=== PATIENT | male | born 1965 | race Caucasian/White ===

== ENCOUNTER 2021-02-25 18:07 | Emergency (ER) | payer SELFPAY ==
[~2021-02-25] VITALS: Ht 167.6 cm; Wt 61.0 kg
[2021-02-25] MEDS ORDERED: SODIUM BICARBONATE [ADULT] 8.4% 50 MEQ/50 ML SYRINGE IVP ONE (18:10)
[2021-02-25] MEDS ORDERED: EPINEPHrine 1:10,000 [1 MG/10 ML] SYRINGE IVP ONE (18:10)
[2021-02-25] MEDS ORDERED: CALCIUM CHLORIDE 100 MG/ML 10 ML SYRINGE IVP ONE (18:10)
[2021-02-25 18:51] LABS: GLUCOSE,POINT OF CARE 95 MG/DL (70-110)
[2021-02-25 19:08] LABS: COVID AG,FIA SOURCE NASOPHARYNGEAL
[2021-02-25 19:49] LABS: ANION GAP 14 mmol/L (8-16); CALCIUM, TOTAL 6.4 mg/dL (8.8-10.5); CARBON DIOXIDE 19 mmol/L (22-29); CHLORIDE 103 mmol/L (98-107); CREATININE 6.04 mg/dL (0.60-1.30); GLOMERULAR FILTR. RATE CALC 10 mL/min (>60); GLUCOSE,RANDOM 124 mg/dL (70-110); POTASSIUM 5.7 mmol/L (3.5-5.1); SODIUM SERUM 136 mmol/L (136-145)
[2021-02-25 19:51] LABS: UREA NITROGEN, BLOOD 110 mg/dL (7-18)
[2021-02-25 19:56] LABS: GLUCOMETER DEV NAME(LOC) ERT.5; GLUCOSE,POINT OF CARE 78 MG/DL (70-110)
[2021-02-25 20:00] LABS: TROPONIN I < 0.02 ng/mL (0.00-0.05)
[2021-02-25] MEDS ORDERED: DEXTROSE 50%-WATER 25 GM/50 ML SYRINGE IVP ONE (20:10)
[2021-02-25 20:15] LABS: PROTHROMBIN TIME 19.9 SEC (9.4-11.6)
[2021-02-25] MEDS ORDERED: SODIUM ZIRCONIUM CYCLOSILICATE 5 GM POWDER PACKET PO ONE (20:15)
[2021-02-25] MEDS ORDERED: DEXTROSE 10%-WATER 1,000 ML IV ONE ×2 (20:15→21:45)
[2021-02-25 20:21] LABS: ALANINE AMINOTRANSFERASE 80 U/L (12-78); ALBUMIN 0.8 g/dL (3.4-5.0); ALKALINE PHOSPHATASE 488 U/L (46-116); ASPARTATE AMINOTRANSFERASE 219 U/L (15-37); BILIRUBIN,TOTAL 6.5 mg/dL (0.1-1.0); CREATINE KINASE, TOTAL ONLY 228 U/L (39-308); TOTAL PROTEIN, SERUM 4.4 g/dL (6.4-8.2)
[2021-02-25 20:24] LABS: LACTIC ACID 7.6 mmol/L (0.4-2.0)
[2021-02-25] MEDS ORDERED: AZITHROMYCIN 500 MG/NS 250 ML IV ONE (20:30)
[2021-02-25] MEDS ORDERED: CefTRIAXone 1 GM/DEXTROSE 50 ML IV ONE (20:30)
[2021-02-25 20:33] LABS: GLUCOMETER DEV NAME(LOC) ERT.5; GLUCOSE,POINT OF CARE 77 MG/DL (70-110)
[2021-02-25 20:44] LABS: AMMONIA 62 umol/L (11-32)
[2021-02-25 20:51] LABS: HEMATOCRIT 26.1 % (41-53); HEMOGLOBIN 8.9 g/dL (13.5-17.5); MEAN CORPUSCULAR HEMOGLOBIN 33.6 pg (26.0-34.0); MEAN CORPUSCULAR VOLUME 99 fL (80-100); PLATELET COUNT (AUTO) 25 K/uL (150-450); RED BLOOD CELL COUNT(AUTO) 2.64 MIL/uL (4.50-5.90); RED CELL DISTRIBUTION WIDTH 22.7 % (11.5-14.5)
[2021-02-25 21:30] LABS: BAND NEUTROPHILS % (MANUAL) 27 % (0-5); LYMPHOCYTES % (MANUAL) 19 % (22-44); MONOCYTES % (MANUAL) 6 % (2-9); SEGMENTED NEUTROPHILS % 48 % (40-70)
[2021-02-25] MEDS ORDERED: BISACODYL 10 MG RECTAL RECTAL SUPPOSITORY PR PRN (21:45)
[2021-02-25] MEDS ORDERED: ACETAMINOPHEN 325 MG TABLET PO PRN (21:45)
[2021-02-25] MEDS ORDERED: MORPHINE SULFATE 2 MG/ML SYRINGE IVP PRN (21:45)
[2021-02-25] MEDS ORDERED: ONDANSETRON HCL 4 MG/2 ML VIAL IVP PRN (21:45)
[2021-02-25] MEDS ORDERED: *CLINICAL-LEVOFLOXACIN IVPB DOSING CLINICAL ONE (21:45)
[2021-02-25] MEDS ORDERED: HYDROCODONE/ACETAMINOPHEN 5-325 MG TABLET PO PRN (21:45)
[2021-02-25] MEDS ORDERED: ZOLPIDEM TARTRATE 5 MG TABLET PO PRN (21:45)
[2021-02-25] MEDS ORDERED: MAGNESIUM HYDROXIDE SUSPENSION 30 ML UDCUP PO PRN (21:45)
[2021-02-25 21:52] LABS: PLATELET MORPHOLOGY COMMENT LARGE PLTS
[2021-02-25 21:58] LABS: INFLUENZA TYPE A NEGATIVE FOR TYPE A (NEGATIVE); INFLUENZA TYPE B NEGATIVE FOR TYPE B (NEGATIVE)
[2021-02-25 22:21] LABS: GLUCOMETER DEV NAME(LOC) ERT.5; GLUCOSE,POINT OF CARE 71 MG/DL (70-110)
[2021-02-25 22:45] VITALS: BP 62/23
[2021-02-26] MEDS ORDERED: HEPARIN SODIUM,PORCINE 5,000 UNITS/ML VIAL SQ SCH
[2021-02-26] MEDS ORDERED: LEVOFLOXACIN 750 MG/D5% WATER 150 ML IV ONE (02:00)
[2021-02-26] MEDS ORDERED: DOCUSATE SODIUM 100 MG CAPSULE PO SCH (09:00)
[2021-02-26] MEDS ORDERED: PANTOPRAZOLE SODIUM 40 MG DR TABLET PO SCH (09:00)
[2021-02-28] MEDS ORDERED: LEVOFLOXACIN 500 MG/D5% WATER 100 ML IV SCH (02:00)
== END 2021-02-25 23:03 ==
LOC: EMS 18:09
DX: I46.9 Cardiac arrest, cause unspecified (principal); G93.40 Encephalopathy, unspecified; A41.9 Sepsis, unspecified organism; J18.9 Pneumonia, unspecified organism; E11.22 Type 2 diabetes mellitus with diabetic chronic kidney disease; N18.9 Chronic kidney disease, unspecified; K72.90 Hepatic failure, unspecified without coma; E11.649 Type 2 diabetes mellitus with hypoglycemia without coma; Z20.822 Contact with and (suspected) exposure to COVID-19
CPT/HCPCS: 36415; 70450; 74022; 74176; 80053; 82140; 82550; 82962; 83605; 83880; 84145; 84484; 85025; 85610; 85730; 87040; 87426; 87804; 92950; 93005; 96365; 96367; 96368; 99291; G0480; J0456; J0696; Q9967; U0003; X7700; 82948; J0171; J3490